=== PATIENT | male | born 1965 | race Caucasian/White ===

== ENCOUNTER 2016-09-09 20:08 | Emergency (ER) | payer BC ==
[2016-09-09] MEDS ORDERED: L.E.T. 3 ML SOLUTION TOPICAL ONE (21:00)
[2016-09-09] MEDS ORDERED: CLINDAMYCIN 600 MG/4 ML VIAL ONE (21:55)
== END 2016-09-09 22:08 | disposition home or self-care (01) ==
LOC: ER 20:08
DX: L02.11 Cutaneous abscess of neck (principal); L03.221 Cellulitis of neck
CPT/HCPCS: 96372